=== PATIENT | male | born 1995 | race Two or more races ===

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

== ENCOUNTER 2017-03-29 17:03 | Emergency (ER) | payer MEDICAID ==
[~2017-03-29] VITALS: Ht 185.4 cm; Wt 71.4 kg
[2017-03-29 17:16] VITALS: BP 122/81
[2017-03-29] MEDS ORDERED: DIPHENHYDRAMINE 25 MG CAPSULE ONE ×2 (18:21→19:00)
[2017-03-29] MEDS ORDERED: DIPHENHYDRAMINE 25 MG CAPSULE PO ONE ×2 (18:30→19:00)
[2017-03-29] MEDS ORDERED: FAMOTIDINE 20 MG TABLET ONE (19:00)
[2017-03-29] MEDS ORDERED: FAMOTIDINE 20 MG TABLET PO ONE (19:00)
== END 2017-03-29 19:22 | disposition home or self-care (01) ==
LOC: ED 19:10
DX: L50.0 Allergic urticaria (principal)
CPT/HCPCS: 99284; J7512; Q0163

== ENCOUNTER 2019-11-22 17:52 | Emergency (ER) | payer MEDICAID, OTHER ==
[~2019-11-22] VITALS: Ht 185.4 cm; Wt 66.0 kg
--- NOTE | 2019-11-22 18:00 | NUR ---
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
--- NOTE | 2019-11-22 19:17 | NUR ---
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
[2019-11-22 19:43] VITALS: BP 119/80
[2019-11-22 20:01] LABS: BASOPHILS # (AUTO) 0.04 x10^3/uL (0-0.1); BASOPHILS % (AUTO) 1 % (0-1); EOSINOPHILS # (AUTO) 0.02 x10^3/uL (0-0.4); EOSINOPHILS % (AUTO) 0 % (1-7); LYMPHOCYTES # (AUTO) 1.73 x10^3/uL (1-3.4); LYMPHOCYTES % (AUTO) 19 % (22-44); MD NO; MEAN CORPUSCULAR HEMOGLOBIN 30.4 pg (27.5-34.5); MEAN CORPUSCULAR HGB CONC 32.8 g/dL (33.2-36.2); MONOCYTES # (AUTO) 0.63 x10^3/uL (0.2-0.8); MONOCYTES % (AUTO) 7 % (2-9); NEUTROPHILS # (AUTO) 6.96 x10^3/uL (1.8-6.8); NEUTROPHILS % (AUTO) 74 % (42-75); PLATELET COUNT 233 x10^3/uL (130-400); RED BLOOD COUNT 5.51 x10^6/uL (4.38-5.82); RED CELL DISTRIBUTION WIDTH 12.6 % (9.4-14.8)
[2019-11-22 20:11] LABS: ALBUMIN 4.9 g/dL (3.4-5.0); ANION GAP 7 mmol/L (5-15); CALCIUM 9.8 mg/dL (8.5-10.1); CHLORIDE 106 mmol/L (98-107); CREATININE 1.09 mg/dL (0.7-1.3)
[2019-11-22 20:15] LABS: TROPONIN I < 0.015 ng/mL (0.000-0.045)
--- NOTE | 2019-11-22 20:26 | NUR ---
ALL RESULTS ARE BACK AT THIS TIME. CHART UP FOR RECHECK.
== END 2019-11-22 21:53 | disposition home or self-care (01) ==
LOC: ED 20:40
DX: R07.9 Chest pain, unspecified (principal); I44.4 Left anterior fascicular block; I51.7 Cardiomegaly
CPT/HCPCS: 36415; 71045; 80048; 82040; 84484; 85025; 93005; 99285